=== PATIENT | male | born 1970 | race Caucasian/White ===

== ENCOUNTER → 2016-11-14 | Outpatient (CLI) | payer BC | LOC: MW.CHIM 08:36 | PROVIDERS: ATTEND Internal Medicine | DX: E03.9 Hypothyroidism, unspecified (principal) | CPT/HCPCS: 36415; 83520; 84445; 86376; 86800 ==

== ENCOUNTER → 2016-11-18 | Outpatient (CLI) | payer BC ==
--- NOTE | 2016-11-19 09:50 | US ---
EXAM DATE: 11/18/16 PATIENT'S AGE: 46 Patient: NEEMA BARCLAY Facility: [place], [place] Site Site : 1970 Study: US ST Neck [id number]/24/2017 11:20:44 AM Ordering Physician: ANIBAL Final Report: HISTORY: Hypothyroidism. Findings: Multiple grayscale static images from a thyroid ultrasound were evaluated. Right lobe of the thyroid measures 4.4 x 1.5 x 1.6 cm. There is diffusely heterogeneous echotexture. There is a hypoechoic nodule in the inferior right lobe of the thyroid measuring 10 x 9 x 8 mm. The isthmus is 4 mm in thickness. The left lobe of the thyroid measures 4.2 x 1.7 x 1.8 cm. The echotexture is diffusely heterogeneous. Impression: 1. Diffusely heterogeneous echotexture of both lobes of the thyroid. 2. 10 mm hypoechoic nodule in the inferior right lobe of the thyroid. Consider followup exam in 6 months to document stability. Dictated by Analisa Irene MD @ Nov 19 2016 12:57AM (Electronic Signature) Report Signed by Proxy and Original Signed Document filed in the Medical Record. [facility]
== END ==
LOC: MW.US 09:43
PROVIDERS: ATTEND Internal Medicine
DX: E03.9 Hypothyroidism, unspecified (principal)
CPT/HCPCS: 76536-26; 76536-50

== ENCOUNTER → 2016-12-06 | Outpatient (CLI) | payer BC ==
[2016-12-06 10:44] LABS: CHLORIDE,CL 104 mmol/L (98-110); SODIUM,NA 141 mmol/L (136-146)
== END ==
LOC: MW.CHIM 09:59
PROVIDERS: ATTEND Internal Medicine
DX: R73.03 Prediabetes (principal)
CPT/HCPCS: 36415; 80053; 83036; 85025

== ENCOUNTER → 2016-12-10 | Outpatient (CLI) | payer BC | LOC: MW.CHIM 09:43 | PROVIDERS: ATTEND Internal Medicine | DX: E03.9 Hypothyroidism, unspecified (principal); E78.00 Pure hypercholesterolemia, unspecified | CPT/HCPCS: 36415; 80061; 84439; 84443 ==